=== PATIENT | male | born 1950 | race Caucasian/White ===

== ENCOUNTER 2016-11-22 10:33 | Day surgery (SDC) | payer BC ==
--- NOTE | 2016-11-15 14:59 | CR ---
PREOPERATIVE EVALUATION AND CONSULTATION DATE OF CONSULTATION: 11/01/2016 CONSULTING PHYSICIAN: Elliot Talley MD REQUESTING SURGEON: Benson Krueger MD of [facility]. PROPOSED SURGERY: Right rotator cuff repair on 11/22/2016 at [facility]. CHIEF COMPLAINT: Preoperative evaluation. HISTORY OF PRESENT ILLNESS: A very pleasant 65-year-old patient of mine presents today for preoperative evaluation and consultation prior to a right rotator cuff tendon repair. The patient notes he was in [employer] skiing in May and had a fall onto his right shoulder. At that point in time, the pain began but it was steady and upon evaluation was found with the assistance of an MRI that he had a tear that should be repaired. The patient is quite active. He is being limited by this as well as some right foot pain. The patient has had any significant cardiac issues, no palpitations, chest pain with exertion. He does exercise greater than 3 METS on a regular basis. He is a nonsmoker. He has had no significant respiratory issues. He has also had no issues with sleep apnea or malignant hypothermia. The patient's other medical issues are also stable. He does need surgery on his right foot, but appears to have appropriate thyroid dose for replacement. His osteoarthritis (OA) is generally stable on his medications as is his benign prostatic hypertrophy (BPH) with a good urine flow, ranitidine for control of his gastroesophageal reflux disease (GERD) symptoms and glucosamine for osteoarthritis (OA). He does take over the counter Zyrtec as well for allergies. In additional, Astelin was negative. PAST MEDICAL HISTORY: Allergic rhinitis. BPH. GERD. Hypothyroidism. Hyperlipidemia. Postnasal drip. Adenomatous polyp of the colon, found fall 2015. Osteoarthritis (OA) right knee. Low back strain. PAST SURGICAL HISTORY: He had a hernia repair as an . Right foot surgery by Dr. Diane in January of 2016 in [place]. ALLERGIES: No known drug allergies. MEDICATIONS: - Astelin nasal spray two sprays twice a day each nostril as needed - ranitidine 150 mg by mouth daily as needed - aspirin 81 mg by mouth daily - multivitamin daily - fish oil 1000 mg daily - glucosamine chondroitin three tablets daily - lutein one tablet daily - levothyroxine 50 mcg by mouth daily - Flomax 0.4 mg two tablets daily - Proscar 5 mg daily FAMILY HISTORY: Father at age 69 of coronary artery disease. The patient' s mother is alive at age 90. She has macular degeneration. The patient himself has nine siblings. He is the third oldest. They are generally all healthy except for one has lupus. He denies any family history of cancer of the breast, colon, prostate or diabetes. 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 He was previously in [employer]. He enjoys being quite active. He was actively participating in tennis until he had problems with his feet. The patient has never smoked. He occasionally takes alcohol, approximately once weekly. REVIEW OF SYSTEMS: As per history of present illness, otherwise, 10 systems review is negative. PHYSICAL EXAMINATION: VITAL SIGNS: Blood pressure 124/78, pulse is 77, height of 5 feet 11 inches, weight 172 pounds, oxygen saturation 98% on room air. GENERAL: Appears well. No acute distress. Nontoxic, alert and oriented times three. HEENT: Pupils equal, round and reactive to light and accommodation. Oral cavity and oropharynx are benign. NECK: Supple. HEART: Regular rate and rhythm. S1 and S2, no murmurs. LUNGS: Clear to auscultation bilaterally. No rales, rhonchi or wheezes. ABDOMEN: Soft, nontender, nondistended. EXTREMITIES: No significant clubbing, cyanosis, or edema. Patient does have limited range of motion in his right shoulder as well as tenderness in his right foot when the entire foot is flexed. PREOPERATIVE EVALUATION: EKG from today shows sinus rhythm with secondary heart block, Mobitz type 1, right bundle branch block. This is a change from previous tracing with first degree AV block only, now a second degree block. Compared to the prior tracing, there was no change in morphology. Labs on 08/23 were normal including CMP, TSH. ASSESSMENT/PLAN: 1. Preoperative evaluation. The patient is optimized for surgical intervention . Aside from the EKG change, he has no know cardiac, pulmonary or anesthesia issues in the past. If there are any concerns or questions, please let me know. I expect routine monitoring. He will hold his aspirin one week prior. If he has new problems or issues sooner, he will let us know. 2. Pain in the right shoulder / rotator cuff tear. The patient is looking forward to correcting the rotator cuff. 3. Hypothyroidism. The patient has had normal labs on 50 mcg of levothyroxine. Will continue to monitor. 4. Benign prostatic hypertrophy (BPH). Doing well on present regimen. Will continue at this point in time. He does followup with urology at least once a year. 5. Allergic rhinitis. Education was done. The patient uses Astelin as well over the counter Zyrtec. Will continue. 6. Osteoarthritis (OA). Does follow with orthopedics, both [facility] as well as [facility] and will continue to monitor. 7. GERD. Good results on ranitidine alone. Will continue. 8. Ongoing care. Each of the patient's medical issues appear to be medically stable at this point in time. He shows some minor changes in the EKG which should not preclude surgical intervention at this point. Will continue to work this up. If there are any questions, call me at [phone]. [facility]
[~2016-11-22] VITALS: Ht 180.3 cm; Wt 77.1 kg
[~2016-11-22 10:33] MED LIST: ASPI1TAB PO; CALC500T49 PO; FLOM5CAP PO; GLUC1CAP10 PO; LUTECAP3 PO; MULT1TAB10 PO; OMEG100011 PO; PROS5TAB PO; RANI75TA9 PO; SYNT50TA PO
[2016-11-22] MEDS ORDERED: ROPIvacaine 0.5% 30 ML INJECTION (J2795) ONE (10:34)
[2016-11-22] MEDS ORDERED: LIDOCAINE 1% MDV 20ML VIAL ONE (10:34)
[2016-11-22] MEDS ORDERED: dexameTHASONE 10 MG/1 ML VIAL PRES.FREE (J1100) ONE (10:34)
[2016-11-22] MEDS ORDERED: LR 1,000 ML IV ONE (10:45)
[2016-11-22] MEDS ORDERED: EPINEPHrine 1MG/ML INJ 30ML MD-VIAL As Ordered ONE (11:16)
[2016-11-22] MEDS ORDERED: fentaNYL 100 MCG/2 ML INJECTION (J3010) As Ordered ONE ×2 (11:56→13:36)
[2016-11-22] MEDS ORDERED: MIDAZOLAM INJ 2 MG/2 ML VIAL (J2250) As Ordered ONE ×2 (11:56→13:36)
[2016-11-22] MEDS ORDERED: MIDAZOLAM INJ 2 MG/2 ML VIAL (J2250) IV PRN (12:45)
[2016-11-22] MEDS ORDERED: fentaNYL 100 MCG/2 ML INJECTION (J3010) IV PRN ×2 (12:45→15:30)
[2016-11-22] MEDS ORDERED: dexameTHASONE 4 MG/ML 1ML VIAL (J1100) As Ordered ONE (13:36)
[2016-11-22] MEDS ORDERED: PROPOFOL 500 MG/50 ML VIAL As Ordered ONE (13:36)
[2016-11-22] MEDS ORDERED: ONDANSETRON 4MG/2ML VIAL (J2405) As Ordered ONE (13:36)
[2016-11-22] MEDS ORDERED: ePHEDrine SULFATE 25 MG/5 ML(5MG/ML) SYRINGE As Ordered ONE (13:41)
[2016-11-22] MEDS ORDERED: PHENYLephrine HCL 500 MCG/5 ML (100MCG/ML) SYRINGE (J2370) As Ordered ONE (13:41)
[2016-11-22] MEDS ORDERED: DESFLURANE 240 ML INHALANT As Ordered ONE (13:45)
[2016-11-22] MEDS ORDERED: LR 1,000 ML IV SCH ×2 (15:30→15:45)
[2016-11-22] MEDS ORDERED: METOCLOPRAMIDE INJ 10MG/2ML VIAL (J2765) IV PRN (15:30)
[2016-11-22] MEDS ORDERED: ONDANSETRON 4MG/2ML VIAL (J2405) IV PRN (15:30)
[2016-11-22] MEDS ORDERED: PERCOCET 5MG/325MG TAB PO PRN (15:30)
[2016-11-22] MEDS ORDERED: MORPHINE 4 MG/ML 1ML SYRINGE IV PRN (15:45)
[2016-11-22] MEDS ORDERED: NORCO, ANEXSIA 5/325MG TABLET (HYDROcodone/ACETAMINOPHEN) PO PRN ×2 (15:45)
[2016-11-22 18:15] VITALS: BP 171/76
--- NOTE | 2016-11-23 21:19 | RO ---
DATE OF PROCEDURE: 11/22/2016 PREPROCEDURE DIAGNOSIS: 1. Right shoulder massive rotator cuff tear. POSTPROCEDURE DIAGNOSIS: 1. Right shoulder massive rotator cuff tear. 2. Biceps tendonitis and partial tear. PROCEDURE: 1. Right shoulder arthroscopic rotator cuff repair using an extended SpeedBridge double-row technique. 2. Right shoulder arthroscopic biceps tenotomy. 3. Right shoulder arthroscopic biceps tenodesis. SURGEON: Dr. Benson Krueger CASE PREPARER AND LINER: None. ANESTHESIA: General endotracheal tube anesthesia with right interscalene nerve block. COMPLICATIONS: None. FINDINGS: He had a massive tear of the supraspinatus and infraspinatus tendons, and the biceps was significantly frayed and torn was well. DESCRIPTION OF PROCEDURE: Antibiotics were given intravenously preoperatively, then a successful right interscalene nerve block and then general endotracheal tube anesthetic was established. Then, he was placed in the semi-beach chair position and a Spider shoulder de león was utilized. Right shoulder area was then carefully prepped and draped in the usual sterile fashion. After appropriate time-out, a routine diagnostic arthroscopy was performed through a posterior portal, revealing a significant biceps tendonitis and fraying and partial rupture, which was photographed. There was some chondromalacia and mild arthritis of the glenohumeral articulation but no significant labral tearing was noted, but a large rotator cuff tear was noted. I used the ablator wand to perform a formal biceps tenotomy. Then, the scope was placed in the subacromial space. Anterior portal was established, a lateral working portal was established using spinal needle localization and then an 8.25 x 7 cm cannula was placed. I did move my visualization portal from posterior to posterolateral using a spinal needle and a switching stick. The rotator cuff footprint was debrided. The subacromial bursectomy was then performed. The tear was noted to be essentially a reverse L, and I spent quite a bit of time with a rotator cuff grasper trying to understand the anatomy of this tear and how best to repair this but it was quite a large tear. Then, after sorting that out and manipulating the rotator cuff, I felt that an apex telk-[id number]-[id number] suture would help and then an extended SpeedBridge would bring this down anatomically once I began that procedure. Once I was satisfied with the debridement of the rotator cuff footprint, I placed first the central medial row SwiveLock anchor using a spinal needle to localize. Then, I passed the retention sutures up through the apex of the rotator cuff such that I could use it as a [id number]-qemp suture later on. I then passed the FiberTape up through the edge of the supraspinatus tendon and docked all the sutures outside the joint. I then placed the posteromedial row, and this was placed with a free FiberTape and then both limbs were passed as a horizontal mattress up through the posterior infraspinatus tendon. The sutures were then docked outside the posterior portal. I then placed the anteromedial row SwiveLock using a spinal needle to localize, and then the punch, and then placed the anchor and then passed the FiberTapes up through. Then, I used the retention sutures from this anchor to perform a formal biceps tenodesis. The retention sutures were brought out through the lateral cannula and loaded on the Scorpion, and I passed it through the biceps stump as well as the subscapularis tendon, and tied it with a [place] slider slipknot providing a nice tenodesis. I then tied the qjih-[id number] suture from the retention sutures from the medial-medial row anchor. Once that was done, I kept the limbs long and used those to incorporate into our lateral row. I first secured the posterolateral row by grabbing one limb from the posterior anchor and one limb from the medial anchor and then one limb from the gdiw-cu-zloz suture, and then made a punch hole posterolaterally and then loaded the FiberTape sutures through the eyelet and then advanced the SwiveLock, making sure I had good even tension on all limbs of the suture and then cut them short. I then grabbed the remaining suture from the posteromedial anchor and one limb from the anteromedial anchor, and then the final suture from the ndok-su-goeg and placed those into our central lateral row SwiveLock outside the joint. The punch hole was made, and then I advanced the SwiveLock taking great care to be sure I had good tension on all limbs of the suture. Those limbs were cut short, and then I grabbed the remaining two FiberTapes out to the lateral cannula, loaded them on the sixth SwiveLock to be used as our lateral anterior anchor, made the punch hole, then advanced the tapes, and then the SwiveLock was advanced. Bone was quite hard, and this SwiveLock actually broke in half, but the part of the SwiveLock that remained in the bone held the sutures nicely with good, firm tension. Photographs were taken to document the repair, had an excellent repair and watertight closure was felt to have been obtained, and thus, I concluded the procedure by copiously irrigating out the subacromial space and closing the arthroscopy portals with nylon sutures, interrupted fashion, covered with Adaptic dry sterile bulky dressing. Then, he was placed in his abduction pillow brace and then awakened from general endotracheal tube anesthesia after having tolerated the procedure well, transferred to the recovery room in stable condition. There were no intraoperative complications.
== END 2016-11-22 18:35 | disposition home or self-care (01) ==
LOC: M SDC 10:33
PROVIDERS: ATTEND Orthopaedic Surgery
DX: S46.011D Strain of muscle(s) and tendon(s) of the rotator cuff of right shoulder, subsequent encounter (principal); M25.511 Pain in right shoulder; M75.21 Bicipital tendinitis, right shoulder; N40.0 Benign prostatic hyperplasia without lower urinary tract symptoms; E03.9 Hypothyroidism, unspecified; K21.9 Gastro-esophageal reflux disease without esophagitis; E78.4 Other hyperlipidemia; Z79.82 Long term (current) use of aspirin; Z79.899 Other long term (current) drug therapy
CPT/HCPCS: 29823; 29827; 29828; 64415; A4649; J0690; J1100; J2250; J2370; J2405; J2795; J3010

== ENCOUNTER → 2017-06-07 | Outpatient (REF) | payer BC, MEDICARE ==
[2017-06-07 20:54] LABS: INFLUENZA A AMPLIFICATION NEGATIVE (NEGATIVE); INFLUENZA B AMPLIFICATION POSITIVE (NEGATIVE)
== END ==
LOC: M LAB REF 16:31
DX: R05 Cough (principal)
CPT/HCPCS: 87502

== ENCOUNTER → 2017-12-23 | Outpatient (REF) | payer BC, MEDICARE ==
[2017-12-23 18:02] LABS: AMYLASE 54 U/L (25-115)
[2017-12-23 18:02] LABS: LIPASE 156 U/L (73-393)
[2017-12-26 08:12] LABS: CONTROL LINE HPYORI INT CTR LINE PRESENT; H PYLORI QUALITATIVE IgG NEGATIVE (NEGATIVE)
== END ==
LOC: M LAB REF 17:21
DX: R10.12 Left upper quadrant pain (principal)
CPT/HCPCS: 82150

== ENCOUNTER 2018-03-08 08:31 | Day surgery (SDC) | payer BC, MEDICARE ==
[~2018-03-08 08:31] MED LIST changes: -ASPI1TAB PO; -CALC500T49 PO; -FLOM5CAP PO; -GLUC1CAP10 PO; +LIDOCAINE 2% INJ 100 MG/5 ML SDV (FOR ANES.) As Ordered; -LUTECAP3 PO; -MULT1TAB10 PO; -OMEG100011 PO; +PROPOFOL 200 MG/20 ML VIAL As Ordered; -PROS5TAB PO; -RANI75TA9 PO; -SYNT50TA PO
[2018-03-08] MEDS: NS 1,000 ML IV (08:45)
== END 2018-03-08 11:17 | disposition home or self-care (01) ==
LOC: M OPP 08:31
DX: Z86.010 Personal history of colon polyps (principal); K64.0 First degree hemorrhoids
CPT/HCPCS: 45378

== ENCOUNTER → 2019-10-03 | Outpatient (REF) | payer BC, MEDICARE ==
[~2019-10-03] MED LIST changes: +ASPI81TA26 PO; +AZEL1SPR3; +CALC500T49 PO; +FLOM0.4C39 PO; +GLUC1CAP10 PO; -LIDOCAINE 2% INJ 100 MG/5 ML SDV (FOR ANES.) As Ordered; +LUTE20TA PO; +LUTECAP3 PO; +MULT1TAB10 PO; +OMEG100011 PO; -PROPOFOL 200 MG/20 ML VIAL As Ordered; +PROS5TAB PO; +RANI75TA15 PO; +SYNT50TA PO
[2019-10-03 17:42] LABS: APPEARANCE, URINE CLEAR (CLEAR); BACTERIA, URINE AUTO NEGATIVE (NEGATIVE); BILIRUBIN, URINE AUTO NEGATIVE (NEGATIVE); BLOOD, URINE BLOOD NEGATIVE (NEGATIVE); COLOR, URINE YELLOW (YELLOW); GLUCOSE, URINE (UA) AUTO NEGATIVE (NEGATIVE); KETONE, URINE AUTO NEGATIVE (NEGATIVE); LEUKOCYTE ESTERASE, URINE AUTO NEGATIVE (NEGATIVE); NITRITE, URINE AUTO NEGATIVE (NEGATIVE); PROTEIN, URINE AUTO NEGATIVE (NEGATIVE); RBC, URINE AUTO 0 /HPF (0-3); SPECIFIC GRAVITY URINE AUTO 1.009 (1.002-1.035); SQUAMOUS EPITHELIAL CELL UR AU 0 /HPF (0-6); UROBILINOGEN, URINE AUTO 0.2 mg/dL (0.0-2.0); WBC, URINE AUTO 0 /HPF (0-3)
== END ==
LOC: M SMT 16:56
PROVIDERS: ATTEND Nurse Practitioner Women's Health
DX: N40.1 Benign prostatic hyperplasia with lower urinary tract symptoms (principal)

== ENCOUNTER → 2020-03-11 | Outpatient (CLI) | payer SELFPAY | LOC: M LABCAHC 11:00 | PROVIDERS: ATTEND Pediatrics | DX: Z11.59 Encounter for screening for other viral diseases (principal) ==

== ENCOUNTER → 2020-03-24 | Outpatient (REF) | payer BC, MEDICARE | LOC: M LAB REF 13:49 | PROVIDERS: ATTEND Dermatology | DX: L82.1 Other seborrheic keratosis (principal) ==

== ENCOUNTER → 2020-08-06 | Outpatient (CLI) | payer BC, MEDICARE ==
--- NOTE | 2020-08-07 06:50 | REP ---
INDICATION: PAIN RIGHT KNEE. COMPARISON: None. TECHNIQUE: Weightbearing AP and lateral view along with sunrise view of the right knee. FINDINGS: Increased sclerosis along the tibial plateau with subtle medial joint space narrowing. Small osteophyte formation along the lateral and superior margins of the patella with increased sclerosis along the anterior patellar surface and mild overlying soft tissue swelling. No acute fracture or dislocation. No obvious effusion. IMPRESSION: Mild degenerative changes. <Electronically signed by Bishop Quan > 08/07/20 [id number]
== END ==
LOC: M SOG 14:03
PROVIDERS: ATTEND Orthopaedic Surgery Adult Reconstructive Orthopaedic Surgery
DX: M25.561 Pain in right knee (principal)

== ENCOUNTER → 2021-03-18 | Outpatient (CLI) | payer BC ==
--- NOTE | 2021-03-19 14:29 | SLEEPHOME ---
DATE: 03/18/2021 ORDERED BY: Dr. John Barth Diagnostic home sleep testing was performed due to concern for the obstructive sleep apnea syndrome in this patient with a history of snoring. For testing, a NOX T3 respiratory monitoring device was used. Continuous record was made of pulse, oxygen saturation, air flow, chest and abdominal strain, and body position. There was 7 hours and 48 minutes of data reviewed. During the interval, there were 136 respiratory events identified of 10 seconds in duration or greater for a respiratory event index of 17.9. The events were primarily obstructive. Baseline saturation 99%. Saturations fell to 80%. Baseline pulse rate 72. Pulse rate ranged 37-111. Testing was performed in both the supine and nonsupine positions. IMPRESSION: Abnormal home sleep testing with repetitive respiratory events and oxygen desaturations to 80% and a respiratory event index of 17.9 is consistent with the obstructive sleep apnea syndrome. RECOMMENDATION: The patient should be encouraged to undergo formal sleep evaluation.
== END ==
LOC: M SLEEP HO 11:20
PROVIDERS: ATTEND Internal Medicine Cardiovascular Disease
DX: R06.83 Snoring (principal)

== ENCOUNTER → 2021-04-14 | Outpatient (CLI) | payer BC | LOC: M RAD 11:36 | PROVIDERS: ATTEND Psychiatry & Neurology Neurology | DX: G45.4 Transient global amnesia (principal); Z86.73 Personal history of transient ischemic attack (TIA), and cerebral infarction without residual deficits ==

== ENCOUNTER → 2021-11-09 | Outpatient (CLI) | payer BC, MEDICARE ==
[2021-11-09 22:30] LABS: C REACTIVE PROTEIN QUANTITATIV < 0.30 MG/DL (0.00-0.30); FERRITIN 102 NG/ML (26-388); RHEUMATOID FACTOR QUANT < 10.0 IU/ML (<15.0); VITAMIN B12 LEVEL 227 PG/ML (247-911)
[2021-11-12 05:28] LABS: PTT LUPUS TYPE ANTICOAG SCREEN 0.9 (0-1.2)
== END ==
LOC: M WUC 14:33
PROVIDERS: ATTEND Family Medicine
DX: G45.4 Transient global amnesia (principal)

== ENCOUNTER → 2021-12-22 | Outpatient (REF) | payer MEDICARE, BC ==
[2021-12-22 13:20] LABS: BLOOD UREA NITROGEN 20 MG/DL (7-18); GLOMERULAR FILTRATION RATE > 60.0 (>42)
== END ==
LOC: M WUC 12:10
PROVIDERS: ATTEND Psychiatry & Neurology Neurology
DX: I10 Essential (primary) hypertension (principal)

== ENCOUNTER → 2022-03-02 | Outpatient (REF) | payer MEDICARE, BC | LOC: M LAB REF 16:19 | PROVIDERS: ATTEND Family Medicine | DX: D51.8 Other vitamin B12 deficiency anemias (principal) ==

== ENCOUNTER → 2022-04-13 | Outpatient (CLI) | payer BC, MEDICARE | LOC: M RAD 10:33 | PROVIDERS: ATTEND Physician Assistant | DX: Z48.812 Encounter for surgical aftercare following surgery on the circulatory system (principal) ==

== ENCOUNTER → 2022-04-13 | Outpatient (REF) | payer BC, MEDICARE | LOC: M SFHCDERM 16:54 | PROVIDERS: ATTEND Physician Assistant | DX: C44.222 Squamous cell carcinoma of skin of right ear and external auricular canal (principal) ==

== ENCOUNTER → 2022-06-07 | Outpatient (REF) | payer MEDICARE, BC ==
[2022-06-07 13:00] LABS: FOLATE > 24.0 NG/ML (>5.4); VITAMIN B12 LEVEL 373 PG/ML (211-911)
== END ==
LOC: M LAB REF 12:10
PROVIDERS: ATTEND Family Medicine
DX: D51.8 Other vitamin B12 deficiency anemias (principal)

== ENCOUNTER → 2023-02-16 | Outpatient (CLI) | payer BC, MEDICARE ==
[~2023-02-16] MED LIST changes: +FINA-48 PO; -PROS5TAB PO
== END ==
LOC: M SLEEP 20:00
PROVIDERS: ATTEND Physician Assistant
DX: G47.33 Obstructive sleep apnea (adult) (pediatric) (principal)

== ENCOUNTER 2023-02-24 07:25 | Emergency (ER) | payer BC ==
[~2023-02-24] VITALS: Ht 177.8 cm; Wt 77.3 kg
[2023-02-24 07:42] VITALS: TEMP 97.1
[2023-02-24 09:30] VITALS: BP 174/84; O2SAT 99
[2023-02-24] MEDS ORDERED: ALPRAZolam 0.5 MG TAB PO ONE (10:25)
== END 2023-02-24 14:19 | disposition home or self-care (01) ==
LOC: M ED 07:25 → EDBD 07:25 → EDSEX 07:25 → M ED 14:19
DX: S76.121A Laceration of right quadriceps muscle, fascia and tendon, initial encounter (principal); W01.0XXA Fall on same level from slipping, tripping and stumbling without subsequent striking against object, initial encounter; E03.9 Hypothyroidism, unspecified; E78.5 Hyperlipidemia, unspecified; Y92.009 Unspecified place in unspecified non-institutional (private) residence as the place of occurrence of the external cause; Y93.89 Activity, other specified; Y99.9 Unspecified external cause status; Z79.82 Long term (current) use of aspirin; Z79.810 Long term (current) use of selective estrogen receptor modulators (SERMs); Z79.899 Other long term (current) drug therapy

== ENCOUNTER → 2023-04-24 | Outpatient (CLI) | payer BC | LOC: M SLEEP 20:00 | PROVIDERS: ATTEND Physician Assistant | DX: G47.33 Obstructive sleep apnea (adult) (pediatric) (principal) ==

== ENCOUNTER → 2023-07-06 | Outpatient (CLI) | payer BC | LOC: M RAD 09:37 | PROVIDERS: ATTEND Physician Assistant | DX: Z48.812 Encounter for surgical aftercare following surgery on the circulatory system (principal) ==

== ENCOUNTER → 2023-08-11 | Outpatient (CLI) | payer BC, MEDICARE | LOC: M CARPUL 09:51 | PROVIDERS: ATTEND Internal Medicine Cardiovascular Disease | DX: I44.30 Unspecified atrioventricular block (principal); I45.10 Unspecified right bundle-branch block ==

== ENCOUNTER → 2024-04-05 | Outpatient (CLI) | payer BC | LOC: M CARPUL 02-16 12:47 | PROVIDERS: ATTEND Family Medicine | DX: I45.10 Unspecified right bundle-branch block (principal); E78.5 Hyperlipidemia, unspecified; I44.0 Atrioventricular block, first degree; I44.4 Left anterior fascicular block ==

== ENCOUNTER → 2024-04-16 | Outpatient (CLI) | payer BC | LOC: M WUC 10:56 | PROVIDERS: ATTEND Family Medicine | DX: M54.50 Low back pain, unspecified (principal) ==

== ENCOUNTER → 2024-05-14 | Outpatient (REF) | payer BC ==
[2024-05-14 13:01] LABS: LIPASE 36 U/L (12-53)
[2024-05-14 13:03] LABS: AMYLASE 72 U/L (30-118)
== END ==
LOC: M LAB REF 11:43
PROVIDERS: ATTEND Family Medicine
DX: R19.4 Change in bowel habit (principal)

== ENCOUNTER → 2024-06-13 | Outpatient (REF) | payer BC | LOC: M SFHCDERM 13:13 | PROVIDERS: ATTEND Nurse Practitioner Family | DX: C44.92 Squamous cell carcinoma of skin, unspecified (principal) ==

== ENCOUNTER → 2024-08-01 | Outpatient (CLI) | payer BC ==
[~2024-08-01] MED LIST changes: -FLOM0.4C39 PO; +TAMS-18 PO
== END ==
LOC: M RAD 14:08
PROVIDERS: ATTEND Physician Assistant
DX: I65.21 Occlusion and stenosis of right carotid artery (principal); I70.1 Atherosclerosis of renal artery; I71.43 Infrarenal abdominal aortic aneurysm, without rupture

== ENCOUNTER → 2024-10-31 | Outpatient (CLI) | payer MEDICARE ==
[2024-10-31 13:11] LABS: CALCIUM LEVEL 9.3 MG/DL (8.3-10.6); CARBON DIOXIDE LEVEL 28.0 MMOL/L (20-31); CHLORIDE LEVEL 104.0 MMOL/L (98-107); CREATININE FOR GFR 1.17 MG/DL (0.70-1.30); GLOMERULAR FILTRATION RATE 65.4 (>42); POTASSIUM SERUM 4.6 MMOL/L (3.5-5.1); SODIUM LEVEL 141.0 MMOL/L (136-145)
== END ==
LOC: M WUC 10:59
PROVIDERS: ATTEND Psychiatry & Neurology Neurology
DX: G45.4 Transient global amnesia (principal)

== ENCOUNTER → 2024-11-08 | Outpatient (CLI) | payer MEDICARE ==
[~2024-11-08] MED LIST changes: +ISOVUE-370 76% 100 ML VIAL ONE
== END ==
LOC: M PLAIMG 10:43
PROVIDERS: ATTEND Psychiatry & Neurology Neurology
DX: G45.4 Transient global amnesia (principal); G31.9 Degenerative disease of nervous system, unspecified; R90.82 White matter disease, unspecified
CPT/HCPCS: 70496; 70498; 70551; Q9967

== ENCOUNTER → 2024-11-12 | Outpatient (CLI) | payer MEDICARE ==
[~2024-11-12] MED LIST changes: -ISOVUE-370 76% 100 ML VIAL ONE
== END ==
LOC: M WUC 10:37
PROVIDERS: ATTEND Urology
DX: Z12.5 Encounter for screening for malignant neoplasm of prostate (principal)
CPT/HCPCS: 36415; G0103

== ENCOUNTER → 2025-03-19 | Outpatient (CLI) | payer MEDICARE | LOC: M EKG 14:03 | PROVIDERS: ATTEND Nurse Practitioner Family | DX: I44.30 Unspecified atrioventricular block (principal) ==

== ENCOUNTER → 2025-04-01 | Outpatient (CLI) | payer MEDICARE, OTHER | LOC: M CARPUL 14:20 | PROVIDERS: ATTEND Nurse Practitioner Family | DX: I35.8 Other nonrheumatic aortic valve disorders (principal); R94.31 Abnormal electrocardiogram [ECG] [EKG] ==